=== PATIENT | female | born 1985 ===

== ENCOUNTER 2022-04-18 06:51 | Inpatient (IN) | payer SELFPAY ==
[2022-04-18] MEDS ORDERED: Sodium Chloride 0.9% 10 ML Syringe FLUSH PRN (07:54)
[2022-04-18] MEDS ORDERED: Water For Irrigation,Sterile 1,000 ML Container IRR PRN (07:54)
[2022-04-18] MEDS ORDERED: Tranexamic Acid 1,000 MG in Sodium Chloride 0.9% 100 ML IV PRN ×2 (07:54→22:17)
[2022-04-18] MEDS ORDERED: Methylergonovine 0.2 MG/1 ML Amp IM PRN ×2 (07:54→22:17)
[2022-04-18] MEDS ORDERED: Misoprostol 200 MCG Tab PO PRN (07:54)
[2022-04-18] MEDS ORDERED: Sodium Chloride 0.9% 20 ML SDV IV PRN (07:54)
[2022-04-18] MEDS ORDERED: Lidocaine 1% 50 ML MDV INJECT PRN (07:54)
[2022-04-18] MEDS ORDERED: Butorphanol 1 MG/ML SDV IVPUSH PRN (07:54)
[2022-04-18] MEDS ORDERED: Carboprost Tromethamine 250 MCG/1 ML Amp IM PRN (07:54)
[2022-04-18] MEDS ORDERED: Sodium Chloride 0.9% 2.5 ML Syringe FLUSH PRN (07:54)
[2022-04-18] MEDS ORDERED: Ampicillin 2 GM in Sodium Chloride 0.9% 100 ML IV ONE (08:00)
[2022-04-18] MEDS ORDERED: Oxytocin/0.9 % Sodium Chloride 30 UNIT/500 ML BAG IV SCH ×2 (08:00→13:45)
[2022-04-18] MEDS: Lactated Ringers 1,000 ML IV SCH ×3 (08:07→13:11)
[2022-04-18] MEDS ORDERED: Ropivacaine/PF 400 MG/200 ML PCA ONE (09:01)
[2022-04-18] MEDS ORDERED: Phenylephrine HCl In 0.9% NaCl 1 MG/10 ML Vial ONE (09:01)
[2022-04-18] MEDS ORDERED: ePHEDrine 50 MG/ML SDV IVPUSH PRN ×3 (09:50→21:49)
[2022-04-18] MEDS ORDERED: Ropivacaine HCl/PF 400 MG in Premix Bag 1 BAG EPIDUR SCH (10:00)
[2022-04-18] MEDS ORDERED: Phenylephrine HCl In 0.9% NaCl 1 MG/10 ML Vial IVPUSH SCH ×2 (10:00→22:00)
[2022-04-18] MEDS: Ampicillin 1 GM in Sodium Chloride 0.9% 50 ML IV SCH ×3 (12:03→20:25)
[2022-04-18] MEDS ORDERED: Terbutaline 1 MG/ML SDV SUBCUT PRN (13:45)
[2022-04-18] MEDS ORDERED: Lidocaine 2% with EPINEPHrine 1:200,000 20 ML SDV ONE (21:00)
[2022-04-18] MEDS ORDERED: Acetaminophen/oxyCODONE 325-5 MG Tab PO PRN ×3 (21:49→22:17)
[2022-04-18] MEDS ORDERED: Ondansetron 4 MG/2 ML SDV IVPUSH PRN ×3 (21:49→22:17)
[2022-04-18] MEDS ORDERED: fentaNYL 50 MCG/ML SDV IVPUSH PRN (21:49)
[2022-04-18] MEDS ORDERED: HYDROmorphone 1 MG/ML Syringe IVPUSH PRN (21:49)
[2022-04-18] MEDS ORDERED: Morphine 4 MG/ML VIAL IVPUSH PRN (21:49)
[2022-04-18] MEDS ORDERED: diphenhydrAMINE 50 MG/ML SDV IVPUSH PRN ×2 (21:49→22:17)
[2022-04-18] MEDS ORDERED: Naloxone 0.4 MG/ML SDV IVPUSH PRN (21:49)
[2022-04-18] MEDS ORDERED: Albuterol 0.083% 2.5 MG/3 ML Neb Soln NEB PRN (21:49)
[2022-04-18] MEDS ORDERED: Metoclopramide 10 MG/2 ML SDV IVPUSH PRN (21:49)
[2022-04-18] MEDS ORDERED: fentaNYL 100 MCG/2 ML SDV IVPUSH PRN (21:49)
[2022-04-18] MEDS ORDERED: Oxytocin 10 Units/1 ML SDV IM PRN (22:17)
[2022-04-18] MEDS ORDERED: Misoprostol 200 MCG Tab RECTAL PRN (22:17)
[2022-04-18] MEDS ORDERED: Lanolin 100% Cream 7 GM Tube TOP PRN (22:17)
[2022-04-18] MEDS ORDERED: Bisacodyl 10 MG Supp RECTAL PRN (22:17)
[2022-04-18] MEDS ORDERED: Lactated Ringers 1,000 ML IV SCH (22:30)
[2022-04-19] MEDS: Ketorolac 30 MG/ML SDV IVPUSH SCH ×5 (02:40→23:44)
[2022-04-19] MEDS ORDERED: Acetaminophen 1,000 MG in Premix Bag 1 BAG IV ONE (02:41)
[2022-04-19] MEDS: Ondansetron 4 MG/2 ML SDV IVPUSH PRN ×2 (03:32→08:03)
[2022-04-19] MEDS: Docusate Sodium 100 MG Cap PO SCH ×2 (09:30→20:21)
[2022-04-20] MEDS ORDERED: Ibuprofen 800 MG Tab PO PRN (04:00)
[2022-04-20] MEDS: Docusate Sodium 100 MG Cap PO SCH (08:59)
[2022-04-20] MEDS ORDERED: Octyl 2-Cyanoacrylate 1 g/1 mL 1 APPLIC PEN ONE (10:25)
[2022-04-20] MEDS ORDERED: Octyl 2-Cyanoacrylate 1 g/1 mL 1 APPLIC PEN TOP ONE (10:52)
== END 2022-04-20 12:40 | disposition home or self-care (01) | DRG 787 ==
LOC: MW.OBCHECK 06:51 → MW.OB 06:52 → MW.OBCHECK 07:54 → MW.OB 07:54 → OBSVTOIN 21:41 → MW.OB 04-19 02:29
PROVIDERS: ADMIT Obstetrics & Gynecology; ATTEND Obstetrics & Gynecology
PROC: 10D00Z1 Extraction of Products of Conception, Low, Open Approach (ICD-10-PCS; principal; 2022-04-18)
PROC: 3E0R3BZ Introduction of Anesthetic Agent into Spinal Canal, Percutaneous Approach (ICD-10-PCS; 2022-04-18)
PROC: 00HU33Z Insertion of Infusion Device into Spinal Canal, Percutaneous Approach (ICD-10-PCS; 2022-04-18)
PROC: 30233N1 Transfusion of Nonautologous Red Blood Cells into Peripheral Vein, Percutaneous Approach (ICD-10-PCS; 2022-04-19)
DX: O48.0 Post-term pregnancy (principal); R71.0 Precipitous drop in hematocrit; Z37.0 Single live birth; Z3A.40 40 weeks gestation of pregnancy; O62.1 Secondary uterine inertia; O77.0 Labor and delivery complicated by meconium in amniotic fluid; Z20.822 Contact with and (suspected) exposure to COVID-19; O99.892 Other specified diseases and conditions complicating childbirth
CPT/HCPCS: 36415; 36430; 51702; 59025; 85014; 85018; 85027; 86592; 86850; 86900; 86901; 86920; A9270-GY; J0131; J0290; J1885; J2405; J2590; J2795; J7120; P9016; U0002

== ENCOUNTER 2023-03-03 08:43 | Emergency (ER) | payer SELFPAY ==
[2023-03-03] MEDS ORDERED: Ketorolac 30 MG/ML SDV IVPUSH ONE (09:56)
[2023-03-03] MEDS ORDERED: Ondansetron 4 MG/2 ML SDV IVPUSH ONE (09:56)
[2023-03-03] MEDS ORDERED: LORazepam 2 MG/ML SDV IVPUSH ONE (09:56)
[2023-03-03] MEDS ORDERED: Sodium Chloride 0.9% 1,000 ML IV ONE (09:56)
[2023-03-03 10:09] LABS: BASOPHILS PERCENT AUTO 0.3 % (0.0-1.5); EOSINOPHILS ABSOLUTE AUTO 0.2 K/uL (0.0-0.7); EOSINOPHILS PERCENT AUTO 2.4 % (0.0-7.0); HEMATOCRIT 38.4 % (36.0-46.0); HEMOGLOBIN 12.8 g/dL (12.0-16.0); LYMPHOCYTES ABSOLUTE AUTO 2.2 K/uL (0.6-2.4); LYMPHOCYTES PERCENT AUTO 30.7 % (16.0-40.0); MEAN CORPUSCULAR HEMOGLOBIN 30.4 pg (27.0-32.0); MEAN CORPUSCULAR HGB CONC 33.3 g/dL (31.0-37.0); MEAN CORPUSCULAR VOLUME 91.2 fL (80.0-98.0); MONOCYTES ABSOLUTE AUTO 0.4 K/uL (0.0-0.8); MONOCYTES PERCENT AUTO 6.1 % (0.0-15.0); NEUTROPHILS ABSOLUTE AUTO 4.3 K/uL (1.4-5.7); NEUTROPHILS PERCENT AUTO 60.5 % (48.0-80.0); PLATELET COUNT,PLT 246 K/uL (150-400); RED BLOOD CELL COUNT 4.21 M/uL (4.30-5.90); WHITE BLOOD CELL COUNT,WBC 7.09 K/uL (4.0-11.0)
[2023-03-03 10:30] LABS: ALBUMIN 3.7 g/dL (3.4-5.0); BILIRUBIN TOTAL 0.4 mg/dL (0.2-1.0); CALCIUM 8.1 mg/dL (8.5-10.1); CARBON DIOXIDE,CO2 22.8 mmol/L (21.0-32.0); CREATININE 0.6 mg/dL (0.6-1.0); EST CRCL DRUG DOSING (CG) 95.93 mL/min; POTASSIUM,K 3.9 mmol/L (3.5-5.1); PROTEIN TOTAL,TP 7.4 g/dL (6.4-8.2)
[2023-03-03 11:22] LABS: APPEARANCE,URINE CLEAR; BILIRUBIN,URINE NEGATIVE (NEGATIVE); COLOR,URINE YELLOW; GLUCOSE,URINE NEGATIVE (NEGATIVE); KETONES,URINE NEGATIVE (NEGATIVE); LEUKOCYTE ESTERASE,URINE NEGATIVE (NEGATIVE); NITRITE,URINE NEGATIVE (NEGATIVE); OCCULT BLOOD,URINE TRACE-INTACT (NEGATIVE); PH,URINE 5.5 (5.0-8.0); PROTEIN,URINE NEGATIVE (NEGATIVE); UROBILINOGEN,URINE 0.2 EU/dL (<2.0)
[2023-03-03 11:37] LABS: BACTERIA,URINE NOT SEEN (NEGATIVE); EPITHELIAL CELLS,URINE FEW (NONE-FEW); RBC,URINE 0-5 (0-2/HPF); WBC,URINE NONE SEEN (0-5/HPF)
== END 2023-03-03 11:53 | disposition home or self-care (01) ==
LOC: MW.ED 08:43
DX: S29.012A Strain of muscle and tendon of back wall of thorax, initial encounter (principal); G44.209 Tension-type headache, unspecified, not intractable; G89.18 Other acute postprocedural pain; Z79.899 Other long term (current) drug therapy; X58.XXXA Exposure to other specified factors, initial encounter
CPT/HCPCS: 36415; 80053; 81001; 81025; 85025; 96361; 96374; 96375; 99284; J1885; J2060; J2405; J7030